=== PATIENT | female | born 1980 | race Asian ===

== ENCOUNTER 2016-07-25 11:59 | Emergency (ER) | payer BC ==
[2016-07-25 12:14] VITALS: BP 135/100; PULSE 91; RESP 16; TEMP 98.4; O2SAT 97
--- NOTE | 2016-07-25 12:36 | UCPHY ---
H & P Time Seen by Provider: 07/25/16 12:07 Patient Type: New HPI/ROS: This patient presents with a 2 day history of facial asymmetry which she describes as inability to smile symmetrically. She has some numbness over her entire tongue and her right face feels funny but cannot be more specific. She has no actual pain including that to the head or face. Her vision is unaffected her hearing is unaffected and she denies any cold symptoms such as nasal congestion, sore throat or ear pain. Symptoms have been gradually worsening since the onset. Smoking Status: Never smoked Physical Exam: This is a well-developed well-nourished female who is in no acute distress. She is alert, oriented and lucid. Her speech is normal her gait is normal. GENERAL: Well-appearing, well-nourished and in no acute distress. HEAD: Atraumatic, normocephalic. EYES: Pupils equal round and reactive to light, extraocular movements intact, sclera anicteric, conjunctiva are normal. She has a partial ptosis on the right. ENT: TMs normal, nares patent, oropharynx clear without exudates. Moist mucous membranes. NECK: Is normal LUNGS: There is no respiratory distress HEART: Regular rate EXTREMITIES: Normal range of motion, no pitting or edema. No clubbing or cyanosis. NEUROLOGICAL: Cranial nerves II through XII grossly intact except for the facial nerve. The forehead musculature is also weak. Normal speech, normal gait. PSYCH: Normal mood, normal affect. SKIN: Warm, dry, normal turgor, no visible rashes or lesions. Constitutional: Initial Vital Signs Temperature (C) 36.9 C 07/25/16 12:11 Heart Rate 91 07/25/16 12:11 Respiratory Rate 16 07/25/16 12:11 Blood Pressure 135/100 H 07/25/16 12:11 O2 Sat (%) 97 07/25/16 12:11 O2 Delivery Mode Room Air Allergies/Adverse Reactions: No Known Allergies Allergy (Verified 07/25/16 12:11) Home Medications: Medication Instructions Recorded Reclipsen 28 Day Tablet 07/25/16 predniSONE 20 mg PO DAILY #15 tablet 07/25/16 Medical Decision Making Differential Diagnosis: I believe that this patient has a Isbell's palsy and there is nothing to suggest another diagnosis at this time. Departure - Departure Disposition: Home, Routine, Self-Care Clinical Impression: Isbell's palsy Condition: Good Instructions: Isbell Palsy (ED) Additional Instructions: You should follow-up with your primary care physician in 5-7 days for repeat evaluation. Use artificial tears in her right eye every 4 hours while awake. During the night tape your right eyelid shot so that your cornea does not dry out. [place],. [Primary Care Provider] - As per Instructions [facility] [Provider Group] - 5-7 days, call for appt. Prescriptions: predniSONE 20 mg PO DAILY #15 tablet - PQRS PQRS Measurement: Not applicable
== END 2016-07-25 12:36 | disposition home or self-care (01) ==
LOC: CED 11:59
DX: G51.0 Bell's palsy (principal)
CPT/HCPCS: G0463-PO